=== PATIENT | female | born 1930 | race American Indian/Alaskan Native ===

== ENCOUNTER 2016-09-23 10:56 | Observation (INO) | payer OTHER ==
[~2016-09-23] VITALS: Ht 157.5 cm; Wt 78.3 kg
[~2016-09-23 10:56] MED LIST: ACETAMINOPHEN325 M1 PO; AMPICILLIN TRI500 MG PO; ANTIVERT25 MG PO; ARICEPT10 MG PO; ASPIR 8181 M1 PO; ATORVASTATIN CA40 MG; ATORVASTATIN CA40 MG PO; CARDIZEM CD120 MG PO; CARDIZEM SR90 MG PO; CARDIZEM120 MG; CIPRO500 MG PO; DIGOX125 MCG; DIOVAN80 MG PO; DONEPEZIL HCL10 MG; ECOTRIN; ELIQUIS2.5 MG PO; ENALAPRIL; ENALAPRIL MALEA20 M1 PO; ERGOCALCIF50000 UNIT PO; GABAPENTIN100 M1 PO; GLUCOTROL XL5 MG PO; HUMALOG100 UNIT/2 SC; LANTUS 10100 UNITS/ SQ; LANTUS 3 M100 UNITS1 SC; LEVO-T125 MCG PO; LEVOTHROID,S0.125 MG PO; LEVOTHYROXINE137 MCG PO; LIPITOR40 MG PO; METFORMIN HCL500 MG PO; MIRALAX255 GM PO; MULTAQ400 MG PO; NAMENDA XR21 MG PO; NEURONTIN100 MG PO; NORVASC10 MG PO; NOVOLOG PE100 UNITS/; NOVOLOG PE100 UNITS/ SQ; PANTOPRAZOLE SO40 MG PO; PROPAFENONE HC150 MG PO; PROTONIX40 MG PO; REMERON15 M2 PO; RYTHMOL150 MG PO; SIMVASTATIN40 M1 PO; VIT D3; WARFARIN SODIUM5 MG; WARFARIN SODIUM5 MG PO
[2016-09-23 12:49] LABS: BASOPHIL COUNT 0.1 K/uL (0-0.1); EOSINOPHIL (%) 1.5 % (0-5); EOSINOPHIL COUNT 0.2 K/uL (0-0.3); HEMATOCRIT 39.6 % (36.0-46.0); IMMATURE GRANULOCYTE (%) 0.5 % (0.0-0.7); IMMATURE GRANULOCYTE COUNT 0.1 K/uL; INSTRUMENT ABS NEUTROPHIL CT 7.4 K/uL; LYMPHOCYTE COUNT 1.8 K/uL (1.0-2.8); MCH 30.1 PG (29.0-34.0); MCHC 31.3 G/DL (30.0-36.0); MCV 96.1 FL (83-99); MONOCYTE (%) 6.1 % (3-12); MONOCYTE COUNT 0.6 K/uL (0-0.8); NEUTROPHIL (%) 73.6 % (45-76); NEUTROPHIL COUNT 7.4 K/uL (1.8-6.4); PLATELET COUNT 129 K/uL (156-360); RBC DIS.WIDTH-CV 13.5 % (11.8-14.6); RBC DIS.WIDTH-SD 48.3 % (39-53); RED BLOOD COUNT 4.12 M/uL (3.80-5.20); WHITE BLOOD COUNT 10.1 K/uL (4.1-10.2)
[2016-09-23 13:30] LABS: CHLORIDE 109 mEq/L (99-109); POTASSIUM 4.7 mEq/L (3.7-5.4); SODIUM 140 mEq/L (136-147)
[2016-09-23 13:32] LABS: GLUCOSE 164 mg/dL (70-99)
[2016-09-23 13:33] LABS: ANION GAP 8 MEQ/L (2-14)
[2016-09-23 13:36] LABS: GFR ESTIMATE (CALCULATED) 33 mL/min/; UREA NITROGEN (BUN) 25 mg/dL (9-23)
[2016-09-23 13:41] LABS: TROP-I INTERPRETATION NEGATIVE; TROPONIN-I < 0.01 ng/mL (0.0-0.30)
[2016-09-23 14:58] LABS: ADD MIUA? YES; BILIRUBIN NEGATIVE; BLOOD NEGATIVE; COLOR YELLOW ((YELLOW)); GLUCOSE (STRIP) >=500; KETONES 5; LEUKOCYTES NEGATIVE; NITRITE NEGATIVE; PROTEIN (STRIP) NEGATIVE; SPECIFIC GRAVITY 1.009 (1.000-1.030); UROBILINOGEN 0.2 MG/DL (0.2-1.0)
[2016-09-23 15:02] LABS: BACTERIA RARE /HPF; EPITHELIAL CELLS 1+ /HPF; HYALINE CASTS 0-5 /LPF; MUCUS TRACE /LPF; RED BLOOD CELLS 0-5 /HPF (0-5); WHITE BLOOD CELLS 0-5 /HPF (0-5)
[2016-09-23] MEDS ORDERED: HUMALOG100 UNIT/2 SC (16:51)
[2016-09-23] MEDS ORDERED: FERROUS SULFAT325 MG PO (16:51)
[2016-09-23 17:18] VITALS: BP 190/78
[2016-09-23 17:44] LABS: POINT-OF-CARE METER ID UU13113831
[2016-09-23 21:00] VITALS: BP 176/74
[2016-09-23 21:01] VITALS: BP 182/76
[2016-09-23 21:02] VITALS: BP 171/73
[2016-09-23 21:50] LABS: POINT-OF-CARE METER ID UU14162513
[2016-09-23 23:47] VITALS: BP 159/67
[2016-09-24 04:00] VITALS: BP 130/62
[2016-09-24 07:54] LABS: POINT-OF-CARE METER ID UU14162513
[2016-09-24 09:20] VITALS: BP 139/60
[2016-09-24 09:21] VITALS: BP 157/70
[2016-09-24 09:22] VITALS: BP 152/67
[2016-09-24 10:50] LABS: BASOPHIL COUNT 0.1 K/uL (0-0.1); EOSINOPHIL COUNT 0.2 K/uL (0-0.3); HEMATOCRIT 31.7 % (36.0-46.0); IMMATURE GRANULOCYTE (%) 0.4 % (0.0-0.7); INSTRUMENT ABS NEUTROPHIL CT 3.9 K/uL; LYMPHOCYTE COUNT 2.6 K/uL (1.0-2.8); MCH 29.8 PG (29.0-34.0); MCHC 30.9 G/DL (30.0-36.0); MCV 96.4 FL (83-99); MEAN PLAT.VOLUME 12.1 uM^3 (9.5-12.4); MONOCYTE (%) 8.3 % (3-12); MONOCYTE COUNT 0.6 K/uL (0-0.8); NEUTROPHIL (%) 52.5 % (45-76); NEUTROPHIL COUNT 3.9 K/uL (1.8-6.4); PLATELET COUNT 123 K/uL (156-360); RBC DIS.WIDTH-CV 13.6 % (11.8-14.6); RBC DIS.WIDTH-SD 48.6 % (39-53); WHITE BLOOD COUNT 7.4 K/uL (4.1-10.2)
[2016-09-24 10:51] LABS: RED BLOOD COUNT 3.29 M/uL (3.80-5.20)
[2016-09-24 11:00] LABS: ANION GAP 7 MEQ/L (2-14); CHLORIDE 112 MEQ/L (99-109); GFR ESTIMATE (CALCULATED) 38 mL/min/; POTASSIUM 4.1 MEQ/L (3.7-5.4); SAMPLE HEMOLYSIS CHECK 0; SAMPLE ICTERIC CHECK 0; SAMPLE LIPEMIA CHECK 0; SODIUM 144 MEQ/L (136-147); UREA NITROGEN (BUN) 21 mg/dL (9-23)
[2016-09-24 11:01] LABS: GLUCOSE 94 mg/dL (70-99)
[2016-09-24 11:37] VITALS: BP 137/63
[2016-09-24 12:11] LABS: POINT-OF-CARE METER ID UU14162513
[2016-09-24 13:15] LABS: INTERNAL CONTROL VALID? YES
[2016-09-24 14:31] LABS: HEMATOCRIT 34.7 % (36.0-46.0); MCV 97.5 FL (83-99)
== END 2016-09-24 16:12 | disposition home health service (06) ==
LOC: EME 10:56 → EDOF 15:46 → 5WEST 17:09
PROVIDERS: Emergency Medicine; Internal Medicine; Physician Assistant Medical
DX: I95.1 Orthostatic hypotension (principal); R11.2 Nausea with vomiting, unspecified; R19.7 Diarrhea, unspecified; F32.9 Major depressive disorder, single episode, unspecified; E78.5 Hyperlipidemia, unspecified; Z86.73 Personal history of transient ischemic attack (TIA), and cerebral infarction without residual deficits; Z95.1 Presence of aortocoronary bypass graft; Z79.4 Long term (current) use of insulin; Z79.01 Long term (current) use of anticoagulants; I25.10 Atherosclerotic heart disease of native coronary artery without angina pectoris; Z95.0 Presence of cardiac pacemaker; D64.9 Anemia, unspecified; I48.91 Unspecified atrial fibrillation; E11.22 Type 2 diabetes mellitus with diabetic chronic kidney disease; I12.9 Hypertensive chronic kidney disease with stage 1 through stage 4 chronic kidney disease, or unspecified chronic kidney disease; N18.3 Chronic kidney disease, stage 3 (moderate); F03.90 Unspecified dementia, unspecified severity, without behavioral disturbance, psychotic disturbance, mood disturbance, and anxiety; K21.9 Gastro-esophageal reflux disease without esophagitis; E03.9 Hypothyroidism, unspecified
CPT/HCPCS: 70450; 71010; 80048; 81003; 82272; 82948; 84484; 85014; 85018; 85025; 93005; 99281; 99285; G0378; G8978 GP CJ; G8979 GP CI; J0360; J1815; J7030